=== PATIENT | male | born 1950 | race Caucasian/White ===

== ENCOUNTER 2016-12-02 09:02 | Outpatient (CLI) | payer MEDICARE ==
--- NOTE | 2016-12-03 07:25 | RAD ---
LUMBAR SPINE THREE VIEWS 12/02/16 No fracture or dislocation was seen. Disc space narrowing is present at L4-L5, and to a lesser exten t at L3-L4. Small anterior osteophytes are present. The SI joints are not widened. There may be some very minor sclerosis of these joints. IMPRESSION: Mild degenerative changes with some disc space narrowing at L3-L4 and L4-L5. POS: HOME
== END 2016-12-02 09:03 | disposition home or self-care (01) ==
LOC: BURRAD 09:02
PROVIDERS: ATTEND Physician Assistant
DX: M54.42 Lumbago with sciatica, left side (principal); M51.36 Other intervertebral disc degeneration, lumbar region
CPT/HCPCS: 72100

== ENCOUNTER 2022-09-30 14:18 | Outpatient (CLI) | payer MEDICARE | END 2022-09-30 14:19 | disposition home or self-care (01) | LOC: BURRAD 14:18 | PROVIDERS: ATTEND Physician Assistant | DX: M79.673 Pain in unspecified foot (principal) ==

== ENCOUNTER 2024-04-05 10:31 | Outpatient (CLI) | payer MEDICARE | END 2024-04-05 10:32 | disposition home or self-care (01) | LOC: BURRAD 10:31 | PROVIDERS: ATTEND Physician Assistant | DX: M79.671 Pain in right foot (principal) ==